=== PATIENT | female | born 1960 | race Caucasian/White ===

== ENCOUNTER 2017-09-22 22:35 | Emergency (ER) | payer OTHER ==
--- NOTE | 2017-09-22 23:10 | RAD ---
PA VIEW OF THE CHEST 09/22/17 INDICATION: Decreased appetite with clear productive cough since [place]. IMPRESSION: No acute abnormality. COMMENTS: No comparisons are available. The lungs are clear. The cardiomediastinal silhouette is normal appeari ng. No acute osseous abnormality is evident. There is partial visualization of suture anchors involvi ng the right shoulder likely related to prior rotator cuff repair. POS: [facility]
[2017-09-22] MEDS ORDERED: Ondansetron ODT 8 MG TAB ONE (23:51)
[2017-09-23] MEDS ORDERED: Promethazine HCl 25 MG/ML VIAL ONE (00:08)
[2017-09-23] MEDS ORDERED: Acetaminophen/Codeine 30-300mg Tablet ONE (00:55)
== END 2017-09-23 01:33 | disposition home or self-care (01) ==
LOC: ERS 22:35
DX: B34.9 Viral infection, unspecified (principal)
CPT/HCPCS: 71010; 94640; 96372; J2550; J7620